=== PATIENT | female | born 1940 | race Caucasian/White ===

== ENCOUNTER 2023-11-13 19:34 | Emergency (ER) | payer MEDICARE, OTHER, SELFPAY ==
[2023-11-13 19:41] VITALS: BP 162/88
--- NOTE | 2023-11-13 19:51 | ED.GENMED ---
History of Present Illness
General
Chief Complaint: Musculo-Skeletal Complaint
Time Seen by Provider: 11/13/23 19:51
Travel History
Have you had any contact with someone who has COVID-19?: No
Do you have any symptoms of coronavirus? Fever > 100 degrees, chills, cough, shortness of breath, sore throat, loss of taste or smell, muscle aches, or headache?: No
History of Present Illness
History of Present Illness:
HPI: Patient presents with 3 weeks of right lower extremity pain. This has been intermittent and actually improved 2 weeks ago. Today her symptoms worsened. She had pain near her knee. 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
but does not think the pain is coming from the varicose veins.
EXAM:
GENERAL: Well appearing in no distress
HEENT: Moist oral mucosa
PSYCHIATRIC: Appropriate mental status, normal insight and judgement
EXTREMITIES: Superficial varicosities noted to both lower extremities, there is no significant tenderness to the palpable varicosities, there is no evidence for cellulitis
SKIN: No rash, no lesions
ED COURSE:
7:55 PM: I initially evaluated patient
NUMBER AND COMPLEXITY OF PROBLEMS ADDRESSED AT THE ENCOUNTER
� Chronic conditions affecting care: A-fib on Eliquis, COPD, hyperlipidemia, skin cancer, varicose veins remote history of vein stripping, the patient states she has had DVT 'blood clots in my legs and arms in the past related to
'
� Acute Exacerbation and/or Progression of Chronic Illness: This is an acute problem
� Differential Diagnosis includes: DVT, superficial venous thrombosis
AMOUNT AND/OR COMPLEXITY OF DATA TO BE REVIEWED AND ANALYZED
� I performed an independent evaluation of and my interpretation is:
EKG:
CT:
X-rays:
Laboratory Studies:
Other: Ultrasound imaging shows no DVT
� Review of other/old records:
� Clinical information was obtained by an independent historian: I spoke to family at bedside
� Prescriptions/Medications Considered but not given:
� Further testing considered but not performed:
RISK OF COMPLICATIONS AND/OR MORBIDITY OR MORTALITY OF PATIENT MANAGEMENT
� Social determinants of health affecting care: Lives at home
� Discussion with other providers:
� Escalation of care including admission/observation vs risk of discharge considered: Ultrasound imaging obtained which was negative. She states she is compliant with her Eliquis. Will give Tylenol for pain. I have also given
her contact information for orthopedics as her pain primarily is from knee down to the Achilles region. Suspect more of a muscular etiology.
Past History
Past History
ED Past Medical History: Arrthythmia (Atrial fib), Asthma, Hypercholesterolemia and Valvular disease; Negative CAD, HTN or NIDDM
ED Past Surgical History: Bowel resection (for diverticulitis)
Social History
Tobacco: Non-smoker
Alcohol: None
Personal:
Living: alone
Phy Exam
Physical Exam
Physical Exam:
See HPI
Course
Orders/Labs/Results
Orders:
Orders
11/13/23 19:57
US Legs, Right [US Periph Venous LOWER Ext RT] Urgent
Comment:
Reason For Exam: RLE pain swelling
11/13/23 22:14
Acetaminophen [Tylenol] 1,000 mg PO NOW STA
Vital Signs
Initial and Last Documented VS:
Initial Vital Signs
Temp Pulse Resp BP Pulse Ox
97.5 F 83 16 162/88 95
11/13/23 19:41 11/13/23 19:41 11/13/23 19:41 11/13/23 19:41 11/13/23 19:41
Last Documented Vital Signs
Temp Pulse Resp BP Pulse Ox
97.5 F 83 16 162/88 95
11/13/23 19:41 11/13/23 19:41 11/13/23 19:41 11/13/23 19:41 11/13/23 19:41
*Critical Care Note
Total Time (30-74mins, 75-104mins- exclusive of procedures): Not Applicable
ED Attending Note
-
Portions of this chart may have been created with voice recognition software.� Occasional wrong word or��sound alike� substitutions may have occurred due to the inherent limitations of voice recognition software.
Discharge Plan
Departure
Patient Disposition: Home (Routine Discharge)
Date of Disposition: 11/13/23
Time of Disposition: 22:14
Patient with high blood pressure during this ER visit?: Yes
Discharge Problem:
Lower extremity pain
Prescriptions:
No Action
omeprazole 40 MG capsule,delayed release(DR/EC)
40 mg PO DAILY
montelukast 10 MG tablet
10 mg PO HS
fluticasone propionate 1 SPRAY spray,suspension
2 spray intranasal DAILYPRN PRN (Reason: allergies/congestion)
mometasone-formoterol [Dulera] 1 PUFF HFA aerosol inhaler
1 puff IN R BID
melatonin-pyridoxine HCl (B6) 1 EACH tablet, IR and ER, biphasic
1 ea PO HS
atorvastatin 40 MG tablet
40 mg PO HS
diltiazem HCl 180 MG capsule,extended release 24hr
180 mg PO HS
ipratropium-albuterol 3 ML solution for nebulization
3 ml inhalation R Q4HPRN PRN (Reason: SOB) 0RF
warfarin [Jantoven] 2.5 MG tablet
2.5 mg PO QPM 0RF
Rx Instructions:
Start on 02/28
Referrals:
Nghia Dumas DO [Family Provider] -
Interventions
Interventions:
*Risk Screen - Suicide Last Done: 11/13/23 19:41
*General Assessment Last Done: 11/13/23 19:41
*Neglect/Abuse Screening Last Done: 11/13/23 19:41
ED- Fall Risk Assessment Last Done: 11/13/23 19:41
*ED COVID-19 Vaccine History Last Done: 11/13/23 19:41
ED-Musculoskeletal Assessment Last Done: 11/13/23 21:33
[2023-11-13] MEDS: TYLENOL 1000 MG PO (22:25)
[2023-11-13 22:38] VITALS: BP 143/81
== END 2023-11-13 22:39 | disposition home or self-care (01) ==
LOC: EMR 19:34
PROVIDERS: EMERGENCY PHYSICIAN Emergency Medicine; FAMILY PHYSICIAN Family Medicine
DX: M79.661 Pain in right lower leg (principal); I48.91 Unspecified atrial fibrillation; J44.89 Other specified chronic obstructive pulmonary disease; E78.00 Pure hypercholesterolemia, unspecified; E11.9 Type 2 diabetes mellitus without complications; Z79.01 Long term (current) use of anticoagulants
CPT/HCPCS: 99284; 93971

== ENCOUNTER → 2024-01-11 12:48 | Outpatient (REF) | payer MEDICARE, OTHER, SELFPAY | LOC: DHCBS MAIN 12:48 | PROVIDERS: ATTENDING PHYSICIAN Internal Medicine Interventional Cardiology; FAMILY PHYSICIAN Family Medicine | DX: I35.0 Nonrheumatic aortic (valve) stenosis (principal) | CPT/HCPCS: 93306 ==

== ENCOUNTER → 2024-04-25 12:52 | Outpatient (REF) | payer MEDICARE, OTHER, SELFPAY | LOC: RAD 12:52 | PROVIDERS: ATTENDING PHYSICIAN Family Medicine | DX: M54.50 Low back pain, unspecified (principal) | CPT/HCPCS: 72110 ==

== ENCOUNTER → 2024-07-06 10:56 | Outpatient (REF) | payer MEDICARE, OTHER, SELFPAY | LOC: MRI 3T 10:56 | PROVIDERS: ATTENDING PHYSICIAN Psychiatry & Neurology Neurology; FAMILY PHYSICIAN Family Medicine | DX: M54.16 Radiculopathy, lumbar region (principal) | CPT/HCPCS: 72148 ==

== ENCOUNTER → 2024-08-15 10:53 | Outpatient (REF) | payer MEDICARE, OTHER, SELFPAY | LOC: WDC 10:53 | PROVIDERS: ATTENDING PHYSICIAN Family Medicine | DX: Z12.31 Encounter for screening mammogram for malignant neoplasm of breast (principal) | CPT/HCPCS: 77063; 77067 ==

== ENCOUNTER → 2024-08-16 10:07 | Outpatient (REF) | payer MEDICARE, OTHER, SELFPAY | LOC: MRI 3T 10:07 | PROVIDERS: ATTENDING PHYSICIAN Psychiatry & Neurology Neurology; FAMILY PHYSICIAN Family Medicine | DX: M79.18 Myalgia, other site (principal) | CPT/HCPCS: 72195 ==

== ENCOUNTER → 2025-02-05 13:47 | Outpatient (REF) | payer MEDICARE, OTHER, SELFPAY | LOC: RCS 13:47 | PROVIDERS: ATTENDING PHYSICIAN Physician Assistant; FAMILY PHYSICIAN Family Medicine | DX: I35.0 Nonrheumatic aortic (valve) stenosis (principal) | CPT/HCPCS: 93306 ==

== ENCOUNTER → 2025-05-13 14:37 | Outpatient (REF) | payer MEDICARE, OTHER, SELFPAY | LOC: RCS 14:37 | PROVIDERS: ATTENDING PHYSICIAN Nurse Practitioner Acute Care; FAMILY PHYSICIAN Family Medicine | DX: I35.0 Nonrheumatic aortic (valve) stenosis (principal) | CPT/HCPCS: 93306 ==